=== PATIENT | male | born 1980 | race Two or more races ===

== ENCOUNTER 2016-12-12 14:27 | Day surgery (SDC) | payer OTHER ==
[~2016-12-12] VITALS: Ht 188 cm; Wt 91.2 kg
[2016-12-12 15:25] VITALS: Ht 188 cm; Wt 91.2 kg
[2016-12-12] MEDS ORDERED: PRILOSEC (15:30)
[2016-12-12] MEDS ORDERED: TESTOSTERONE (15:30)
[2016-12-12 15:47] VITALS: BP 136/75; PULSE 83; RESP 15
[2016-12-12] MEDS ORDERED: PROPOFOL 40 ML ONE (15:49)
[2016-12-12 17:14] VITALS: BP 129/78; PULSE 73; RESP 15
--- NOTE | 2016-12-12 17:18 | GILP ---
DATE OF PROCEDURE: 12/12/2016 NAME OF PROCEDURES: 1. Esophagogastroduodenoscopy and biopsy. 2. Colonoscopy and biopsy. SURGEON: Steven Motta MD PREOPERATIVE DIAGNOSES: 1. Chronic heartburn. 2. Rectal bleeding. 3. Change in bowel habit. POSTOPERATIVE DIAGNOSES: 1. Hiatal hernia. 2. Gastroesophageal reflux disease. 3. Gastritis with erosions. 4. Gastric mucosal biopsies were taken for Helicobacter pylori test. 5. Colonoscopy all the way to the cecum and into the terminal ileum. 6. Normal terminal ileum. 7. Anal polyp and biopsies were taken for histopathology. 8. Internal hemorrhoids. 9. Random biopsies were taken to rule out microscopic colitis. INDICATION FOR THE PROCEDURE: Mr. Nathaniel Roberts is a 36-year-old male patient who had chronic hear tburn, not responding to therapy. He also had chronic diarrhea and rectal bleeding. The patient wa s scheduled for endoscopy and colonoscopy for further evaluation. The procedures and possible complications were well explained to the patient. The patient understoo d and consented to the procedure. DESCRIPTION OF PROCEDURE: Under the influence of anesthesia, the gastroscope was carefully introduc ed into the esophagus and under direct vision, it was advanced to the stomach and through the pyloru s into the duodenal bulb and descending duodenum. FINDINGS: ESOPHAGUS: The patient had hiatal hernia and gastroesophageal reflux disease. STOMACH: He had gastritis with erosions. Gastric mucosal biopsies were taken for H. pylori test. DUODENUM: Normal. The colonoscope was carefully introduced in the rectum and under direct vision, it was advanced all the way to the cecum and through the ileocecal valve into the terminal ileum. FINDINGS: The terminal ileum was normal. The colonic mucosa was normal. Random biopsies were take n to rule out microscopic colitis. The patient was noted to have a polypoid lesion in the anus and biopsies were taken for histopathology. The patient also had internal hemorrhoids. He tolerated the procedures very well and there was no complication from the procedures. At the end of the procedures, he was awake with stable vital signs and he was discharged home to the care of h is family. IMPRESSION: Please see postoperative diagnoses. PLAN: 1. Prilosec 40 mg p.o. q.a.m. 2. Await histopathology reports. 3. The patient will need referral to a surgeon for resection of the anal polyp. Dictated By: STEVEN BONNER/VIOLETA Conf#: [id number] DID#: [id number] CC: STEVEN MOTTA MD;*[facility]*
== END 2016-12-12 17:38 | disposition home or self-care (01) ==
LOC: GIL 14:27
PROVIDERS: ATTEND Internal Medicine Gastroenterology
DX: R19.4 Change in bowel habit (principal); K62.0 Anal polyp; K44.9 Diaphragmatic hernia without obstruction or gangrene; K21.9 Gastro-esophageal reflux disease without esophagitis; K29.60 Other gastritis without bleeding; K64.8 Other hemorrhoids
CPT/HCPCS: 87081; 88305

== ENCOUNTER 2017-01-20 06:48 | Day surgery (SDC) | payer OTHER ==
[~2017-01-20] VITALS: Ht 188 cm; Wt 91.9 kg
[~2017-01-20 06:48] MED LIST: PRILOSEC; TESTOSTERONE
[2017-01-20 08:02] VITALS: Ht 188 cm; Wt 91.9 kg
[2017-01-20 08:55] VITALS: BP 129/72; PULSE 82; RESP 15
[2017-01-20] MEDS ORDERED: PROPOFOL 40 ML ONE (09:01)
[2017-01-20] MEDS ORDERED: LIDOCAINE 2% (SDV) 5 ML INJ ONE (09:01)
[2017-01-20 09:53] VITALS: BP 136/87; PULSE 72; RESP 12
[2017-01-20] MEDS ORDERED: FENTAnyl 50 MCG/ML VIAL ONE (10:10)
--- NOTE | 2017-01-30 12:36 | GILP ---
DATE OF PROCEDURE: PROCEDURE PERFORMED: Colonoscopy, biopsy and polypectomy. SURGEON: Dr. Antonina Murcia. PREOPERATIVE DIAGNOSIS: Colon polyp. POSTOPERATIVE DIAGNOSES: 1. Sigmoid colon polyp was removed using the biopsy forceps. 2. Large anal polyp was removed using the snare and the rectal cautery. 3. Internal hemorrhoids. INDICATION: Mr. Jl Roberts is a 36-year-old male patient who has rectal bleeding. On the previous colonoscopy examination, he was noted to have a large anal polyp. 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 So the patient is scheduled for polypectomy. The procedure and possible complications were well explained to the patient. He understood and consented to the procedure. DESCRIPTION OF PROCEDURE: Under influence of anesthesia, the colonoscope was carefully introduced in the rectum and it was advanced to the proximal part of the colon. FINDINGS: The patient had a sigmoid colon polyp which was flat and it was removed using the biopsy forceps. He was again noted to have a large anal polyp and it was removed using the snare and the rectal cautery. Patient was noted to have internal hemorrhoids. He tolerated the procedure very well. There were no complications from the procedure. At the end of the procedure, he was awake with stable vital signs and he was discharged home in the care of his family. IMPRESSION: 1. Sigmoid colon polyp was removed using the biopsy forceps. 2. Large anal polyp was removed using the snare and the electrocautery. PLAN: 1. Await histopathology reports. 2. The timing for the next colonoscopy will be decided after reviewing the biopsy report. Dictated By: MD HA Hernandez/lul/rigoberto /Document#: [id number] CC: Antonina Murcia MD;*[facility]*
== END 2017-01-20 15:35 | disposition home or self-care (01) ==
LOC: GIL 06:48
PROVIDERS: ATTEND Internal Medicine Gastroenterology
DX: D12.5 Benign neoplasm of sigmoid colon (principal); K62.0 Anal polyp
CPT/HCPCS: 45380; 45385; 88305; J3010